=== PATIENT | female | born 1960 | race Caucasian/White ===

== ENCOUNTER 2017-03-23 07:38 | Day surgery (SDC) | payer OTHER ==
[~2017-03-23] VITALS: Ht 154.9 cm; Wt 75.8 kg
[~2017-03-23 07:38] MED LIST: BENA1TAB13 PO
[2017-03-23] MEDS ORDERED: MIRALAX (08:08)
[2017-03-23] MEDS ORDERED: TAMOXIFEN (08:08)
--- NOTE | 2017-03-23 09:26 | OPPN ---
Date/Time of Note Date/Time of Note DATE: 03/23/17 TIME: 09:25 Operative Report Preoperative Diagnosis Screening Postoperative Diagnosis Small right colon polyp was removed Internal hemorrhoids Operation/Procedure Performed Colonoscopy and biopsy Surgeon see signature line field technical assistant None Anesthesia: moderate sedation Estimated blood loss: none Transfusion Required none Specimen Colon biopsy Grafts/Implants none Complications none SHEELA SERVIN MD Mar 23, 2017 09:26
[2017-03-23] MEDS ORDERED: FENTAnyl 50 MCG/ML VIAL ONE (09:28)
[2017-03-23] MEDS ORDERED: MIDAZOLAM 1 MG/ML 2 ML INJ ONE ×2 (09:28)
[2017-03-23 09:45] VITALS: BP 132/63; PULSE 64; RESP 18
--- NOTE | 2017-03-23 11:11 | GILP ---
DATE OF PROCEDURE: NAME OF PROCEDURES: Colonoscopy and biopsy. SURGEON: Sheela Mortensen MD PREOPERATIVE DIAGNOSIS: Screening colonoscopy. POSTOPERATIVE DIAGNOSES: 1. Colonoscopy all the way to the cecum. 2. Small right colon polyp was removed using the biopsy forceps. 3. Internal hemorrhoids. INDICATION FOR THE PROCEDURE: Ms. Antoinette North is a 56-year-old female patient who was noted to have positive occult blood in stool. She never got screening colonoscopy. The procedure and possible complications were well explained to the patient, she understood and cons ented to the procedure. DESCRIPTION OF PROCEDURE: Under the influence of fentanyl and Versed, the colonoscope was carefully introduced in the rectum and under direct vision, it was advanced all the way to the cecum. FINDINGS: The patient had a small right colon polyp and it was removed using the biopsy forceps. S he had internal hemorrhoids. She tolerated the procedure very well and there was no complication from the procedure. At the end of the procedure, she was awake with stable vital signs and she was discharged home to the care of h er family. IMPRESSION: Please see postoperative diagnosis. PLAN: Next screening colonoscopy in 10 years. Dictated By: SHEELA CARRENO/BUD Conf#: [id number] DID#: [id number]
== END 2017-03-23 11:17 | disposition home or self-care (01) ==
LOC: GIL 07:38
PROVIDERS: ATTEND Internal Medicine Gastroenterology
DX: Z12.11 Encounter for screening for malignant neoplasm of colon (principal); K64.8 Other hemorrhoids; K63.5 Polyp of colon
CPT/HCPCS: 88305; J2250; J3010

== ENCOUNTER 2017-04-23 06:40 | Day surgery (SDC) | payer OTHER ==
[2017-04-22 11:35] VITALS: BMI 32.5
[2017-04-23] VITALS (11 sets, daily range): BP systolic 103–140; BP diastolic 53–83; PULSE 78–85; RESP 11–18; Ht 154.9 cm; Wt 75.8 kg
[~2017-04-23] VITALS: Ht 154.9 cm; Wt 75.8 kg
[~2017-04-23 06:40] MED LIST changes: +CEFAZOLIN 2 GM/50 ML (PMX) 50 ML IVPB SCH; +DIPHENHYDRAMINE 50 MG INJ IV PRN; +FENTAnyl 50 MCG/ML VIAL IV PRN; +MEPERIDINE 25 MG INJ IV PRN; +METOCLOPRAMIDE 10 MG INJ IV PRN; +MIDAZOLAM 1 MG/ML 2 ML INJ IV PRN; +MIRALAX; +ONDANSETRON 4 MG INJ IV PRN; +OXYCODONE/ACETAMINOPHEN (5/325) TAB PO PRN; +SOD CHLORIDE 0.9% 1,000 ML IV SCH; +TAMOXIFEN
[2017-04-23] MEDS ORDERED: CEFAZOLIN 1 GM INJ ONE ×2 (07:00→08:04)
[2017-04-23] MEDS ORDERED: VIT1TABL85 PO (07:03)
[2017-04-23] MEDS ORDERED: NOL20 PO (07:03)
[2017-04-23] MEDS ORDERED: FAMOTIDINE 20 MG INJ ONE (07:25)
[2017-04-23] MEDS ORDERED: METOCLOPRAMIDE 10 MG INJ ONE (07:25)
[2017-04-23] MEDS ORDERED: PROPOFOL 20 ML ONE (07:25)
[2017-04-23] MEDS ORDERED: FENTAnyl 50 MCG/ML VIAL ONE (07:25)
[2017-04-23] MEDS ORDERED: DEXAMETHASONE 4 MG/ML 1 ML INJ ONE (07:25)
[2017-04-23] MEDS ORDERED: LIDOCAINE 2% (SDV) 5 ML INJ ONE (07:25)
[2017-04-23] MEDS ORDERED: MIDAZOLAM 1 MG/ML 2 ML INJ ONE (07:25)
[2017-04-23] MEDS ORDERED: ONDANSETRON 4 MG INJ ONE (07:25)
--- NOTE | 2017-04-23 07:40 | RADRPT ---
PROCEDURE: XR Chest. TECHNIQUE: Single frontal radiograph. CLINICAL INDICATION: Preoperative. COMPARISON: CR CHEST 03/23/2016. FINDINGS: There is a right-sided Port-A-Cath in place with the tip at the atrial caval junction. No focal consolidation, pneumothorax, or pleural effusions. The heart size is within normal limits. IMPRESSION: No acute cardiopulmonary process. RPTAT: EE .Braeden Gray MD, MD Date Time Electronically viewed and signed by .Braeden Gray MD, MD on 04/23/2017 07:46 .C/
[2017-04-23 07:41] LABS: EOSINOPHILS # 0.1 10^3/ul (0.0-0.5); EOSINOPHILS % 3.1 % (0.0-7.0); HEMATOCRIT 31.4 % (37.0-47.0); HEMOGLOBIN 10.4 g/dl (12.0-16.0); LYMPHOCYTES # 1.1 10^3/ul (0.8-2.9); LYMPHOCYTES % 26.5 % (15.0-51.0); MEAN CORPUSCULAR HEMOGLOBIN 29.2 pg (29.0-33.0); MEAN CORPUSCULAR HGB CONC 33.1 g/dl (32.0-37.0); MEAN CORPUSCULAR VOLUME 88.2 fl (82.0-101.0); MEAN PLATELET VOLUME 9.8 fl (7.4-10.4); MONOCYTE # 0.3 10^3/ul (0.3-0.9); MONOCYTES % 6.3 % (0.0-11.0); NEUTROPHIL # 2.6 10^3/ul (1.6-7.5); NEUTROPHILS % 62.6 % (39.0-77.0); PLATELET COUNT 202 10^3/UL (140-415); RED BLOOD COUNT 3.56 10^6/ul (4.20-5.40); RED CELL DISTRIBUTION WIDTH 12.2 % (11.5-14.5)
[2017-04-23 07:44] LABS: HOLD TRANSMISSIONS 1
[2017-04-23 07:45] LABS: WHITE BLOOD COUNT 4.2 10^3/ul (4.8-10.8)
[2017-04-23 08:01] LABS: INR 0.98
[2017-04-23 08:03] LABS: PARTIAL THROMBOPLASTIN TIME 24.4 Sec (25.0-35.0)
[2017-04-23] MEDS ORDERED: MEPERIDINE 100 MG INJ ONE (08:03)
[2017-04-23 08:21] LABS: ALBUMIN 3.7 g/dl (3.3-4.9); ALBUMIN/GLOBULIN RATIO 1.23; BILIRUBIN,INDIRECT 0.3 mg/dl (0-1.1); BILIRUBIN,TOTAL 0.3 mg/dl (0.2-1.3); TOTAL PROTEIN 6.7 g/dl (6.1-8.1)
[2017-04-23] MEDS ORDERED: CLINDAMYCIN 600 MG/D5W (PMX) 0 ML IVPB ONE (08:26)
[2017-04-23 08:29] LABS: CALCIUM 8.3 mg/dl (8.4-10.2); CREATININE 0.65 mg/dl (0.44-1.00)
[2017-04-23 08:32] LABS: POTASSIUM 3.3 mmol/L (3.5-5.1)
--- NOTE | 2017-04-23 08:58 | SIPON ---
Date/Time of Note Date/Time of Note DATE: 04/23/17 TIME: 08:57 Operative Report Preoperative Diagnosis History of breast cancer need for chemo port removal from the right subclavian location Postoperative Diagnosis Same Operation/Procedure Performed Chemo-Port removal from the right subclavian location Surgeon see signature line lead dental assistant Dr Craven Anesthesia: general Estimated blood loss: 0 - 10 ml's Transfusion Required none Specimen Chemo-Port gross only Grafts/Implants none Complications none MARIELA LEIVA MD Apr 23, 2017 08:58
[2017-04-23] MEDS ORDERED: MEPERIDINE 25 MG INJ IV PRN (09:00)
[2017-04-23] MEDS ORDERED: DIPHENHYDRAMINE 50 MG INJ IV PRN ×2 (09:00)
[2017-04-23] MEDS ORDERED: OXYCODONE/ACETAMINOPHEN (5/325) TAB PO PRN ×2 (09:00)
[2017-04-23] MEDS ORDERED: ONDANSETRON 4 MG INJ IV PRN (09:00)
[2017-04-23] MEDS ORDERED: METOCLOPRAMIDE 10 MG INJ IV PRN (09:00)
[2017-04-23] MEDS ORDERED: FENTAnyl 50 MCG/ML VIAL IV PRN ×3 (09:00)
[2017-04-23] MEDS ORDERED: MIDAZOLAM 1 MG/ML 2 ML INJ IV PRN (09:00)
--- NOTE | 2017-04-23 09:42 | OPR ---
DATE OF OPERATION: 04/23/2017 PREOPERATIVE DIAGNOSIS: History of left breast cancer, need for chemotherapy port removal. POSTOPERATIVE DIAGNOSIS: History of left breast cancer, need for chemotherapy port removal. OPERATION PERFORMED: Removal of chemo port, right subclavian location. ANESTHESIA: General. ANESTHESIOLOGIST: Nurse salsa dance instructor, Joe Nolen. SURGEON: Stuart Garsia MD WELL LOGGING CAPTAIN: Dr. Craven. INDICATIONS FOR PROCEDURE: The patient is a 56-year-old female who is known to me. I previously tr eated her for invasive cancer of her left breast. She completed her treatment and was doing well an d requested removal of her chemo port. She consented and was scheduled for surgery. DESCRIPTION OF PROCEDURE: The patient was brought to the operating theater, placed under general an esthesia. The right anterior thorax was prepped and draped in usual sterile fashion. Previous surg ical incisional scar was reincised with 15 blade scalpel. Subcutaneous tissue was dissected with ca utery down to the pseudocapsule surrounding the port. The capsule was incised. The port was elevat ed with a hemostat and gently withdrawn while pressure was held in an infraclavicular location. The port appeared grossly intact. It was sent for gross analysis to ensure that it was intact. The wo und was then irrigated. Minimal bleeding was controlled with cautery. The skin was reapproximated with 5-0 PDS sutures and benzoin and Steri-Strips were applied. Patient tolerated procedure well. The estimated blood loss was 5 mL. There were no complications and the patient was transported in s table condition to the recovery room. Dictated By: STUART GARSIA MD TL/NTS Conf#: [id number] DID#: [id number] CC: KAROLYN CRAVEN MD;*EndCC*
--- NOTE | 2017-04-23 13:14 | RADRPT ---
Vent Rate: 75 bpm RR Interval: 0 msec [place] Interval: 164 msec QRS Duration: 68 msec QT Interval: 392 msec QTC Interval: 437 msec P-R-T [place]: 56 - 29 - 52 degrees Normal sinus rhythm Normal ECG Electronically Signed By: Eulalio Tran [id number]
== END 2017-04-23 10:16 | disposition home or self-care (01) ==
LOC: SDS 06:40
PROVIDERS: ATTEND Surgery Surgical Oncology
DX: Z45.2 Encounter for adjustment and management of vascular access device (principal); Z85.3 Personal history of malignant neoplasm of breast; I10 Essential (primary) hypertension; E78.5 Hyperlipidemia, unspecified
CPT/HCPCS: 36590; 71010; 80053; 85025; 85610; 85730; 88300; 93005; J0690; J1100; J2250; J2405; J2765; J3010; Z7512; Z7610; J2175